=== PATIENT | female | born 1990 | race Caucasian/White ===

== ENCOUNTER 2022-09-14 11:30 | Outpatient (RCR) | payer BC, SELFPAY | END 2022-11-23 14:37 | disposition home or self-care (01) | PROVIDERS: PCP Family Medicine; Visit Provider Family Medicine | DX: O26.892 Other specified pregnancy related conditions, second trimester (principal); M54.50 Low back pain, unspecified; R53.1 Weakness; R26.2 Difficulty in walking, not elsewhere classified; Z51.89 Encounter for other specified aftercare | CPT/HCPCS: 97110; 97140; 97161 ==

== ENCOUNTER 2022-10-12 12:15 | Inpatient (IN) | payer BC, SELFPAY ==
[2022-10-12] VITALS (22 sets, daily range): BP systolic 83–115; BP diastolic 51–73; PULSE 68–82; RESP 14–16; TEMP 36.5–37.1; O2SAT 96–100; BMI 25.7
[2022-10-12 13:00] LABS: Basophils Absolute Auto 0.02 K/uL (0.00-0.30); Basophils Percent Auto 0.2 % (0.0-3.0); Eosinophils Absolute Auto 0.05 K/uL (0.00-0.50); Eosinophils Percent Auto 0.6 % (0.0-7.0); Hematocrit 36.2 % (33.0-51.0); Hemoglobin* 12.6 gm/dL (12.0-16.0); Immature Granulocytes Abs Auto 0.34 K/uL (0.00-0.30); Immature Granulocytes Pct Auto 3.9 %; Lymphocytes Absolute Auto 1.92 K/uL (0.90-2.90); Lymphocytes Percent Auto 21.8 % (20-44); Mean Corpuscular HGB Conc 35 gm/dL (32-36); Mean Corpuscular Hemoglobin 31 pg (26-34); Mean Corpuscular Volume 89 fL (80-100); Monocytes Percent Auto 7.8 % (0.0-11.0); Neutrophils Absolute Auto 5.78 K/uL (1.7-7.0); Neutrophils Percent Auto 65.7 % (42.0-72.0); Platelet Count* 115 K/uL (140-440); RDW Coefficient of Variation % 12.8 % (11.5-15.5); Red Blood Count 4.08 m/uL (4.00-5.20)
[2022-10-12] MEDS: LACTATED RINGERS 1000 ML 1,000 ML IV ×2 (13:03→14:08)
[2022-10-12 13:17] LABS: Slide Review Reflex Yes
[2022-10-12 13:30] LABS: Slide Review Acceptable Review (Acceptable)
--- NOTE | 2022-10-12 14:03 | W.PM.LDBA ---
Subjective History of Present Illness Time Seen by Provider: 13:30 Date Seen: 10/12/22 Narrative: She is a 32 year old at 39.0 weeks gestation. Patient is being admitted to Labor and Delivery for SROM. She endorsed leakage of fluid on Tuesday 10/10 but stopped. She had some amount of leakage on Wednesday but wasn't having any other labor symptoms. Matilde presented for her appointment with Dr. Sarmiento today and continued to have leaking. An AmniSure was done and it was positive. Active movement. Denies vaginal bleeding or abnormal vaginal discharge. Minimal contractions. Her full history and physical was dictated by Dr. Sarmiento as she is her primary obstetric provider. Please see this for details. OB - Problem Based A/P Additional Plan (1) Previous delivery affecting : Status: Acute Plan CS Consent - The patient was consented for section and blood. She understands that the three main categories of risk include bleeding, infection, and damage to surrounding structures. Regarding infection, she understands that we will be delivering appropriate antibiotics, however that the risk of infection following section still is approximately 5%. Given that her membrane is ruptured, she will receive 2 g of ancef and 500 mg of azithromycin. She understands that though the risk is very low that there is always a risk of damage to the bladder, uterus, ovaries, fallopian tubes, bowels, ureters, or even the fetus. She understands that most injuries can be addressed at the time of surgery, however, such an injury may require additional surgeries to fix. Lastly, she understands that a section carries a risk of bleeding, and that while this bleeding can be addressed with multiple medical and surgical modalities, that there is the possibility of needing a blood transfusion, generally around 1% or less. She reports she would accept a blood transfusion understanding the risks of a 1/200,000 risk of Hepatitis and 1/2,000,000 risk of HIV as well as the risk of having an allergic reaction to the blood products. She further understands that this reaction is typically mild, however can be severe including respiratory distress and necessitating ICU-level care. Lastly, she understands that a section does increase risks for future pregnancies and deliveries including, but not limited to, the risk of uterine rupture or placenta accreta. I did reconfirm that she desires permanent sterilization. - Her admission labs is notable for plt of 115. Like gestational thrombocytopenia. Patient does report a history in last . - Hgb 12.6 - Will proceed with repeat delivery and bilateral salpingectomy OB Exam Physical Exam Vital signs: Temp Pulse BP 98.8 F 82 107/57 L 10/12/22 13:24 10/12/22 13:24 10/12/22 13:24 Narrative: Physical exam: General: No acute distress Psych: Alert and oriented x3, full affect HEENT: Normocephalic, atraumatic Lungs: Unlabored breathing Neuro: No focal deficit. Mentating appropriately Abdomen: Gravid. Nontender, nondistended. No rebound or guarding. Pelvic exam: Deferred to OR
[2022-10-12] MEDS: CEFAZOLIN 2 GM INJ IVP (14:06)
[2022-10-12] MEDS: AZITHROMYCIN 500 MG in 0.9 % SODIUM CHLORIDE 250 ml 250 ML 255 MG IVPB (14:12)
--- NOTE | 2022-10-12 15:37 | W.ANESCHARGE ---
Anesthesia Charges Start Date/Time Anesthesia Start Date: 10/12/22 Anesthesia Start Time: 13:56 Stop Date/Time Anesthesia Stop Date: 10/12/22 Anesthesia Stop Time: 15:30 Summary Emergency: [employer]
--- NOTE | 2022-10-12 15:38 | W.PM.NB ---
Nerve Block Nerve Block Time Seen by Provider: 15:20 Date Seen: 10/12/22 Type of block requested by surgeon for post-operative analgesia: TAP Side: bilateral Time out performed: Yes Verification of patient name: Yes Verification of date of : Yes Site marking: not applicable Name of person performing procedure: juve Continuous monitoring Was continuous monitoring of O2 sat, B/P, cardiac catheterization technician, recorded every 15 minutes?: Yes Procedure Checklist: sterile prep, needles and gloves Ultrasound guided. Images saved: Yes Medications given in 5ml increments after negative aspiration: Marcaine %: 0.25 mL: 30 Needle gauge: 20 and Exparel mL: 10 Patient tolerated procedure well: Yes Block Charges Block Charge (with Pro Fee): TAP Bilateral Use of Ultrasound Machine for Block: Yes- US Guidance/pain block
--- NOTE | 2022-10-12 16:07 | PM.OBPRCCS ---
Procedure Time Seen by Provider: 14:00 Date of procedure: 10/12/22 Procedure Done: Global Will [facility] bill your pro fee for this procedure?: Yes Procedure Description: DELIVERY BY SECTION Date of Service: 10/12/2022 Delivery time: 1427 Summary: Admitted for SROM at 39 weeks, repeat lower uterine segment section, bilateral salpingectomy, Pfannenstiel, Closed with suture, QBL 432 cc, no complications, Findings: Extensive adhesion of omentum to peritoneum and rectus muscle and thick bladder adhesion to previous hysterotomy scar. Otherwise, normal uterus. Normal bilateral ovaries. Normal right fallopian tube. Left fallopian to with likely endometriosis lesion on the ampulla and paratubal cyst (removed with salpingectomy). 8/9, weight 4350 g. Primary Indication: Previous section x2 Spontaneous rupture of membranes Undesired fertility Procedures: Repeat lower uterine transverse section Bilateral salpingectomy Specimens Removed: Bilateral fallopian tubes Surgeon: Dora Weinstein MD Assistants: None Anesthesia: Spinal and TAP Report: Prophylactic antibiotic, 2 g of Ancef and 500 mg of azithromycin was given before patient was taken to OR. After arrival to the operating room patient was placed in the supine position with left lateral tilt after administration of spinal anesthesia. Laparotomy A pfannenstiel incision was made through the anterior abdominal wall with #10 scalpel approximately 2 cm above the pubic symphysis. The incision was extended sharply with the #10 scalpel through the subcutaneous tissue to the level of fascia. The fascia was entered sharply with a #10 scalpel (Pfannenstiel) in the midline and extended in semi-elliptical fashion with Lopez scissor. The underlying muscles were dissected off the overlying fascia by grasping the superior aspect of fascia with two jefferson clamps and blunt dissection was used along the midline. The fascia was further from rectus muscle with Lopez scissor and/or cautery. In similar fashion, the lower aspect of fascia was also grasped with two Jefferson clamps and both blunt and sharp dissection was used to separate fascia from rectus muscle. The rectus muscles were in the midline with Anamaria. The peritoneum was then entered sharply with Metzenbaum. The peritoneal incision was then extended superiorly and inferiorly under direct visualization with care being taken to avoid bladder and bowel. Dense adhesion of the omentum to peritoneum and rectus muscles, lysis of adhesions performed with Metzenbaum and electrocautery. The peritoneal incision was enlarged bluntly by lateral traction from the surgeon's and first calender worker's hand. Tristin retractor was inserted into the abdomen. Delivery A bladder flap was developed by grasping with Monegasque forcep and enter with Metzenbaun scissor. Then sharp and blunt dissection with Metzenbaum scissor and fingers were performed to drop the bladder of lower uterine segment. A low transverse hysterotomy was made then with #10 scalpel and extended laterally and cephalad with fingers in a low transverse fashion with Manu Zhang technique with care being taken to avoid injury to the fetus. The amniotic cavity (membrane) was then entered with spontaneous rupture of membrane, and the amniotic fluid was noted to be clear, fetus was delivered cephalic. With delivery of the baby, no extension was noted. Placenta was delivered spontaneously with steady traction on cord and manual separation of placenta from uterine wall. Closure Uterine cavity was cleaned after placental delivery with lap sponge x 2. The hysterotomy was closed in one layer with stitches using 0 vicryl with continuous locking stitches. Hemostasis was achieved as needed with electrocautery. The ovaries/tubes/uterine surface were evaluated and found to be as stated above. Attention was turned toward bilateral salpingectomy. Patient verified verbally that she desired to have her tubes tied. The uterus was exteriorized and the left fallopian tube identified. The tube was then grasped with Concepcion clamps and LigaSure was cauterize and ligate the mesosalpinx directly beneath the Concepcion clamp starting at the fimbriated end of the tube. Sequential pedicles were then performed to the level of the cornua where it was transected. The right fallopian tube was removed in a similar manner. Excellent hemostasis was noted of all pedicles. Tristin retractor removed and hemostasis was confirmed again. A 1 cm defect was noted at midline on superior fascia. This was repaired with running 2-0 Vicryl. Fascia was closed with running stitches using 0 PDS. Hemostasis was checked for and found to be adequate. Patient had minimal subcutaneous layer. The skin was closed with monocryl subcuticular sutures. The incision was cleaned and covered with a compression bandage and the procedure considered terminate at this time. Intraoperative Complications: None QBL: 432 cc Uterotonics: 40 u of pitocin Disposition: The patient tolerated the procedure well. She was recovered in Obstetric PACU for close monitoring in stable condition, with a contracted uterus and normal transvaginal bleeding. The infant was sent to mother?s bedside/PACU. The placenta was not sent to pathology. Aneta Infant total score - 1 minute: 8 total score - 5 minute: 9
[2022-10-12] MEDS: KETOROLAC 30 MG/ML inj IVP (20:59)
[2022-10-13] VITALS (13 sets, daily range): BP systolic 96–115; BP diastolic 61–77; PULSE 71–87; RESP 16; TEMP 36.8–37; O2SAT 96–97
[2022-10-13] MEDS: KETOROLAC 30 MG/ML inj IVP ×4 (03:09→22:45)
[2022-10-13 06:27] LABS: Hemoglobin* 11.6 gm/dL (12.0-16.0)
[2022-10-13] MEDS: ACETAMINOPHEN 500 MG TABLET 1000 MG PO ×3 (07:50→21:51)
[2022-10-13] MEDS: DOCUSATE SODIUM 100 MG CAPSULE PO (07:51)
--- NOTE | 2022-10-13 08:21 | PM.OBPNVD1 ---
OB - PN:Subj Subjective Time Seen by Provider: 08:21 Date Seen: 10/13/22 Interval history: Matilde is a 32 y.o. who was admitted to L & D for SROM.? She had an uncomplicated repeat .? ? ? Narrative: The patient feels well.? The pain is well controlled with current medications.? She does have referred shoulder pain from gas. We discussed walking, [place] to help. She has no new complaints.? She is breast feeding and reports things are going well.? the patient has done well.? Vitals have been stable.? She has remained afebrile.? Has a good appetite, is tolerating a general diet.? She is voiding without difficulty.? She is passing gas and has not had a bowel movement.? She is ambulating and denies any dizziness.? Has Small amount of rubra lochia.? OB - PN: Obj Exam Physical Exam: Vital signs: Temp Pulse Resp BP Pulse Ox O2 Del Method 98.6 F 82 16 97/61 97 Room Air 10/13/22 07:39 10/13/22 07:39 10/13/22 08:01 10/13/22 07:39 10/13/22 07:39 10/13/22 07:39 Narrative: VSS.? Afebrile? GENERAL APPEARANCE:? normal affect, alert, no distress? MOOD:? appropriate? HEENT: normocephalic, neck supple, full ROM? CHEST:? Symmetrical chest wall movement.? Normal respiratory effort.? Clear to auscultation? HEART:? regular rate and rhythm? ABDOMEN:? soft, non-tender. Uterine fundus is firm, 1 fingerbreadth below Umbilicus, Midline and is appropriate for the stage of recovery.? Bowel sounds present.? EXTREMITIES:? normal and no edema? SKIN: warm, dry.? Dressing on, clean/dry/intact.? ? No signs of infection noted.? Urinary Catheter Management: Urethral: Cath placed during this visit: yes Urethral indwelling: No Reason for continuing: surgical procedure Insertion date: 10/12/22 Insertion time: 14:09 OB - PN: Obj Data Labs Labs: Laboratory Results - last 24 hr 10/12/22 10/13/22 12:52 06:06 WBC 8.80 RBC 4.08 Hgb 12.6 11.6 L Hct 36.2 MCV 89 MCH 31 MCHC 35 RDW Coeff of Sandra 12.8 Plt Count 115 L Neut % (Auto) 65.7 Lymph % (Auto) 21.8 Sutton % (Auto) 7.8 Eos % (Auto) 0.6 Baso % (Auto) 0.2 Neut # (Auto) 5.78 Lymph # (Auto) 1.92 Sutton # (Auto) 0.70 Eos # (Auto) 0.05 Baso # (Auto) 0.02 Abs Immat Gran (auto) 0.34 H Imm/Tot Granulo (auto) 3.9 Diff Slide Review Acceptable Review Blood Type O Negative Antibody Screen POSITIVE Screen Negative Crossmatch (AHG) See Detail OB - PN: A/P Delivery Assessment and Plan (1) Previous delivery affecting : Status: Acute (2) examination following delivery: Status: Acute (3) Lactating mother: Status: Acute Plan Comments: Assessment/Plan? G 4 P 3 status post uncomplicated repeat .? ?? 1.? Continue route PP cares? 2.? .? May see if desired? 3.? Anticipate discharge home tomorrow or the following day per pt preference? ?
[2022-10-13] MEDS: SIMETHICONE 80 MG TAB.CHEW PO ×3 (12:46→20:51)
--- NOTE | 2022-10-14 07:58 | P.DS_ITS ---
DS: Providers Provider Date Seen: 10/14/22 Date of admission: 10/12/22 12:15 Primary care physician: Nati Sarmiento DO Admitting Clinician: Dora Weinstein MD Attending Physician on discharge: Dora Weinstein MD Date of Discharge: 10/14/22 DS: Diagnosis Discharge Diagnosis (1) examination following delivery: Status: Acute (2) Lactating mother: Status: Acute (3) Status post tubal ligation at time of delivery, current hosp: Status: Acute Exam Narrative: Exam Narrative: GENERAL APPEARANCE:? normal affect, alert, no distress? MOOD:? appropriate? CHEST:? clear to auscultation and percussion? HEART:? regular rate and rhythm? ABDOMEN:? soft, non-tender the uterine fundus is 2 cm Below Umbilicus, Midline and is appropriate for the stage of recovery. Incision well approximated without edema, redness, warmth, or drainage. Glue closure intact.? EXTREMITIES:? normal and no edema? Patient has no complaints? No active bleeding?? Doing well? She is requesting discharge home.? Const: Vital Signs, click to edit/add: Vital Signs - 24 hr 10/13/22 08:01 10/13/22 09:01 10/13/22 10:01 Temperature Pulse Rate [Pulse Oximeter] Respiratory Rate 16 16 16 Blood Pressure [Le ft Arm] Pulse Oximetry Oxygen Delivery Me thod 10/13/22 11:01 10/13/22 12:01 10/13/22 12:41 Temperature 98.6 F Pulse Rate [Pulse Oximeter] 87 Respiratory Rate 16 16 16 Blood Pressure [Le ft Arm] 96/65 Pulse Oximetry 97 Oxygen Delivery Me thod Room Air 10/13/22 13:01 10/13/22 14:01 10/13/22 16:27 Temperature 98.2 F Pulse Rate [Pulse Oximeter] 85 Respiratory Rate 16 16 16 Blood Pressure [Le ft Arm] 115/77 Pulse Oximetry 97 Oxygen Delivery Me thod Room Air 10/13/22 20:42 Temperature 98.2 F Pulse Rate [Pulse Oximeter] 85 Respiratory Rate 16 Blood Pressure [Le ft Arm] 101/65 Pulse Oximetry 97 Oxygen Delivery Me thod Room Air OB - DS: Summary Hospital Course Hospital Course: Patient is a 32year old, G 4 now P 3? admitted on 10/12/22 at [] Weeks, [] Days gestation for repeat after SROM.? She had an uncomplicated delivery.? She delivered a viable male .? She is breast feeding and reports things are well.? the patient has done well.? Her pain is wel l controlled with current medications.?She has not used any oxycodone and declines the need for any at discharge. She has no new complaints.? Vitals have been stable. She has remained afebrile. She is voiding without difficulty. She is passing gas and has not had a bowel movement. She is ambulating and denies any dizziness. She has a tubal ligation for control with her .? Peripartum Data Infant delivery method: Repeat Section Procedures: Procedures Operation Date: 10/12/22 13:15 Actual Procedure Side Surgeon p Repeat Section, Bilateral Salpingectomy Doraleonel Weinstein MD Gender: Male Infant Discharge Plan: Home Status at Discharge Functional status at discharge: independent ambulation Overall status at discharge: patient is progressing back to baseline Time Spent with Patient Time attestation: Total time spent providing and/or coordinating discharge services: Discharge Plan Discharge Disposition: Home, Self-Care Date of Admission: 10/12/22 12:15 Attending Provider on Discharge: Milagro Ruvalcaba Primary Care Provider: Nati Sarmiento Condition: Stable Anticipated Discharge Date/Time: 10/14/22 10:00 Discharge Medications: New docusate sodium 100 mg Capsule 100 mg PO DAILY Qty: 90 0RF Rx Instructions: Take 1-2 tablets daily as needed for constipation. ibuprofen 600 mg Tablet 600 mg PO Q6H PRN (Reason: Pain) Qty: 90 0RF Continued DHA 200 mg capsule 200 mg PO DAILY Discontinued ferrous sulfate 325 mg (65 mg iron) tablet 325 mg PO Q OTHER DAY Discharge Orders: Discharge Order (Routine); Ordered 10/14/22 Ordered By: Milagro Ruvalcaba Consulting provider completed their portion of the discharge: Yes Patient Education: OB /Breast Feeding Additional Instructions: Discharge instructions were reviewed with the patient including signs and symptoms of infection and home going medications? ?? Activity restrictions:? Lifting Restrictions: 20 pounds for 6 weeks? No high-impact or core exercises for 6 weeks.?? No not submerge incision under water X 2 weeks?? Nothing vaginally for 6 weeks: no tampons or intercourse? Do not drive while taking narcotic pain medication(s)? Off Work or School for 8 weeks? ?? Symptoms to report to doctor:? -Bleeding that saturates more than one pad per hour? -Passing clots larger than the size of a golf ball? -Pain not relieved by prescribed medication? -Fever above 100.4 degrees Fahrenheit? -A foul vaginal odor? -Difficulty in emotions, mood and functions? -Thoughts of hurting yourself and/or ? -Painful, reddened area in your breast? -Any drainage, redness or tenderness in your IV/epidural site? -Severe headache that doesn't improve after taking medications? -Changes in vision, including temporary loss of vision, blurred vision, and/or light sensitivity? -Upper abdominal pain (usually under ribs on the right side)? -Decrease in urination or painful, frequent urinating? -Chest pain? -Shortness of breath? -Tenderness or pain with redness and/swelling in the calf(s) of your leg? Follow up visits:?? 1. 2-week visit: incision check, discuss infant feeding/care concerns, review control options and screen for anxiety/depression.? 2. 6-week visit for an annual exam.? ?? consultation services are available to all mothers and babies for the first year after delivery.? To make an appointment, please call [phone].? Activity Level: Other Activity Detail: See Above Provider Restrictions Discharge Diet: Regular Follow Up Appointments: [facility] [Provider Group] Nati Sarmiento DO [Primary Care Provider] - Forms: Simplebooklet Info Instructions
[2022-10-14 08:45] VITALS: BP 100/67; PULSE 72; RESP 16; TEMP 36.8; O2SAT 98
[2022-10-14] MEDS: DOCUSATE SODIUM 100 MG CAPSULE PO (09:07)
[2022-10-14] MEDS: ACETAMINOPHEN 500 MG TABLET 1000 MG PO ×2 (09:07→14:51)
[2022-10-14] MEDS: IBUPROFEN 600 MG TABLET PO ×2 (10:16→17:16)
== END 2022-10-14 17:20 | disposition home or self-care (01) | DRG 540 ==
PROVIDERS: Obstetrics & Gynecology; Admitting Provider Obstetrics & Gynecology; PCP Family Medicine; Visit Provider Obstetrics & Gynecology
PROC: 10D00Z1 Extraction of Products of Conception, Low, Open Approach (ICD-10-PCS; CPT 59514; principal; 2022-10-12 13:15)
DX: O42.12 Full-term premature rupture of membranes, onset of labor more than 24 hours following rupture (principal); O34.211 Maternal care for low transverse scar from previous cesarean delivery; Z30.2 Encounter for sterilization; O99.892 Other specified diseases and conditions complicating childbirth; N73.6 Female pelvic peritoneal adhesions (postinfective); Z3A.39 39 weeks gestation of pregnancy; Z37.0 Single live birth; G89.18 Other acute postprocedural pain
CPT/HCPCS: 01961; 36415; 64488; 76942; 85018; 85025; 85461; 86850; 86870; 86880; 86900; 86901; 86922; 88302; 99140; A9270; C9290; J0456; J0665; J0690; J1100; J1200; J1885; J2274; J2371; J2405; J2590; J2765; J2791; J7050; J7120